=== PATIENT | female | born 1950 | race Caucasian/White ===

== ENCOUNTER 2018-01-09 11:01 | Observation (INO) | payer MEDICARE ==
[~2018-01-09] VITALS: Ht 162.6 cm; Wt 66.7 kg
[2018-01-09 11:08] VITALS: BP 150/68
[2018-01-09] MEDS ORDERED: NACL 0.9% 1,000 ML IV ONE (11:30)
[2018-01-09] MEDS ORDERED: ASPIRIN 81 MG TAB.CHEW PO ONE (11:30)
[2018-01-09] MEDS ORDERED: KETOROLAC 30 MG/ML VIAL IVP ONE (11:55)
[2018-01-09 11:59] LABS: BASOPHILS % (AUTO) 0.4 % (0.0-2.0); EOSINOPHILS # (AUTO) 0.2 K/uL (0-0.4); EOSINOPHILS % (AUTO) 2.9 % (0.0-4.0); HEMATOCRIT 38.8 % (36-48); HEMOGLOBIN 13.1 g/dL (12.0-16.0); LYMPHOCYTES # (AUTO) 2.8 K/uL (2.5-16.5); LYMPHOCYTES % (AUTO) 35.2 % (20.5-51.1); MEAN CORPUSCULAR HEMOGLOBIN 28 pg (27-31); MEAN CORPUSCULAR HGB CONC 34 g/dL (33-37); MEAN CORPUSCULAR VOLUME 82.4 fL (80-94); MONOCYTES # (AUTO) 0.6 K/uL (0.8-1.0); MONOCYTES % (AUTO) 7.4 % (1.7-9.3); NEUTROPHILS # (AUTO) 4.3 K/uL (1.8-7.7); NEUTROPHILS % (AUTO) 54.1 % (42.2-75.2); PLATELET COUNT (AUTO) 239 K/uL (140-450); RED CELL DISTRIBUTION WIDTH 12.8 % (11.6-13.7); WHITE BLOOD COUNT (AUTO) 7.9 K/uL (4.8-10.8)
[2018-01-09 12:20] LABS: PROTHROMBIN TIME 9.6 secs (10.8-13.4)
[2018-01-09 12:22] LABS: ANION GAP 9.4 (8-16); CARBON DIOXIDE 30.4 mmol/L (21-32); POTASSIUM 3.8 mmol/L (3.5-5.1)
[2018-01-09 12:27] LABS: ALBUMIN 3.7 g/dL (3.4-5.0); TOTAL BILIRUBIN 0.4 mg/dL (0.0-1.0)
[2018-01-09 12:30] LABS: CREATININE 0.5 mg/dL (0.6-1.3)
[2018-01-09] MEDS ORDERED: NITROGLYCERIN 2% 1 GM PKT TP ONE (12:40)
[2018-01-09] MEDS ORDERED: HYDROcodone/APAP 5/325 MG 1 TAB TAB PO PRN (14:20)
[2018-01-09] MEDS ORDERED: HYDROmorphone 1 MG/ML AMP IVP PRN (14:20)
[2018-01-09] MEDS ORDERED: ACETAMINOPHEN 325 MG TAB PO PRN (14:20)
[2018-01-09] MEDS ORDERED: INSULIN LISPRO SLIDING SCALE 100 UNITS/ML VIAL SUBQ PRN (14:20)
[2018-01-09] MEDS ORDERED: NITROGLYCERIN 0.4 MG TAB SL PRN (14:20)
[2018-01-09] MEDS ORDERED: DEXTROSE 50% 50 ML SYR IVP PRN (14:20)
[2018-01-09] MEDS ORDERED: LORazepam 2 MG/ML VIAL IVP PRN (14:20)
[2018-01-09] MEDS ORDERED: ZOLPIDEM 5 MG TAB PO PRN (14:20)
[2018-01-09] MEDS ORDERED: ONDANSETRON 4 MG/2 ML VIAL IVP PRN (14:20)
[2018-01-09 15:30] VITALS: BP 159/68
[2018-01-09] MEDS ORDERED: PNEUMOCOCCAL VACCINE 23 MCG/0.5 ML VIAL IMVAC SCH (16:05)
[2018-01-09] MEDS: BLOOD GLUCOSE MONITORING 1 DEV DEV FS SCH ×2 (17:25→20:53)
[2018-01-09 20:00] VITALS: BP 125/62
[2018-01-09 20:33] LABS: CREATINE KINASE MB 0.6 ng/mL (0-3.6)
[2018-01-09] MEDS: METOPROLOL 25 MG TAB PO SCH (20:51)
[2018-01-09] MEDS ORDERED: SIMVASTATIN 20 MG TAB PO SCH (21:00)
[2018-01-10] VITALS: BP 99/45
[2018-01-10 04:00] VITALS: BP 98/48
[2018-01-10] MEDS: BLOOD GLUCOSE MONITORING 1 DEV DEV FS SCH ×2 (06:00→11:52)
[2018-01-10 07:39] LABS: ANION GAP 10.5 (8-16); CARBON DIOXIDE 27.8 mmol/L (21-32); CREATININE 0.5 mg/dL (0.6-1.3); POTASSIUM 4.3 mmol/L (3.5-5.1)
[2018-01-10 08:00] VITALS: BP 119/67
[2018-01-10 08:00] LABS: CHOL/HDL RATIO 6.1 (1-4.5)
[2018-01-10 08:03] LABS: CREATINE KINASE MB 0.5 ng/mL (0-3.6)
[2018-01-10] MEDS ORDERED: ENOXAPARIN 40 MG/0.4 ML SYR SUBQ SCH (09:00)
[2018-01-10] MEDS ORDERED: ASPIRIN 81 MG TAB.CHEW PO SCH (09:00)
[2018-01-10] MEDS: METOPROLOL 25 MG TAB PO SCH (09:00)
[2018-01-10] MEDS ORDERED: FAMO-90 PO (10:52)
[2018-01-10] MEDS ORDERED: NAPR-1641 PO (10:52)
== END 2018-01-10 11:50 | disposition home or self-care (01) ==
LOC: MED 11:01 → MTU 14:20
PROVIDERS: ADMIT Hospitalist; ATTEND Hospitalist
DX: R07.89 Other chest pain (principal); I10 Essential (primary) hypertension; E11.9 Type 2 diabetes mellitus without complications; E78.5 Hyperlipidemia, unspecified
CPT/HCPCS: 36415; 71045; 80048; 80053; 80061; 82550; 82553; 82948; 84484; 85025; 85610; 85730; 87081; 93005; 94760; 96372; 96374; 99285; G0378; J1650; J1815; J1885; Q0092; 96361; J7030